=== PATIENT | male | born 1980 ===

== ENCOUNTER 2022-04-07 11:40 | Emergency (ER) | payer OTHER ==
[~2022-04-07] VITALS: Ht 180.3 cm; Wt 77.1 kg
[2022-04-07] MEDS ORDERED: LIPITOR20 MG PO (12:25)
== END 2022-04-07 22:59 | disposition home or self-care (01) ==
LOC: ER 11:40
DX: K40.90 Unilateral inguinal hernia, without obstruction or gangrene, not specified as recurrent (principal); N43.3 Hydrocele, unspecified

== ENCOUNTER 2022-05-29 06:29 | Day surgery (SDC) | payer OTHER ==
[~2022-05-29] VITALS: Ht 175.3 cm; Wt 78.0 kg
[~2022-05-29 06:29] MED LIST: LIPITOR20 MG PO
== END 2022-05-29 16:45 | disposition home or self-care (01) ==
LOC: EDBD 06:29 → CIR.AMB 06:29
PROVIDERS: ATTEND Specialist
DX: K40.90 Unilateral inguinal hernia, without obstruction or gangrene, not specified as recurrent (principal); F84.0 Autistic disorder; Z20.822 Contact with and (suspected) exposure to COVID-19
CPT/HCPCS: 49505; C1781

== ENCOUNTER 2022-06-04 08:39 | Outpatient (CLI) | payer OTHER | END 2022-06-04 08:56 | disposition home or self-care (01) | LOC: LAB 08:39 → EDBD 08:39 → LAB 08:56 | DX: Z20.828 Contact with and (suspected) exposure to other viral communicable diseases (principal) ==

== ENCOUNTER 2022-07-02 09:27 | Outpatient (CLI) | payer OTHER | END 2022-07-02 09:28 | disposition home or self-care (01) | LOC: LAB 09:27 | DX: Z20.828 Contact with and (suspected) exposure to other viral communicable diseases (principal) ==